=== PATIENT | female | born 1995 | race Caucasian/White ===

== ENCOUNTER 2020-06-15 16:15 | Outpatient (CLI) | payer BC ==
--- NOTE | 2020-06-15 16:47 | RAD ---
Exam:3 views left ankle HISTORY: Sprain. Pain x3 months COMPARISON: None FINDINGS: Intact ankle mortise. Preserved joint spaces. No fracture or soft tissue swelling IMPRESSION: No acute radiographic abnormality.
--- NOTE | 2020-06-15 16:50 | RAD ---
Exam:Left hand 3 views HISTORY: Joint pain. COMPARISON: None FINDINGS: Joint spaces are preserved. No erosive or destructive changes. No fracture. No soft tissue swelling. IMPRESSION: No radiographic abnormalities.
--- NOTE | 2020-06-15 16:53 | RAD ---
XR Hand Rt 3 View STANDARD: 06/15/2020 12:00 AM CLINICAL INDICATION: Joint pain COMPARISON: None. FINDINGS: Bones: No acute osseous abnormality. Joints: Joint spaces are preserved. Soft Tissue: Soft tissues are normal appearing. IMPRESSION: No acute osseous abnormality..
== END 2020-06-15 16:16 | disposition home or self-care (01) ==
LOC: BICRAD 16:15
PROVIDERS: ATTEND Family Medicine
DX: S93.402A Sprain of unspecified ligament of left ankle, initial encounter (principal); M25.541 Pain in joints of right hand; M25.542 Pain in joints of left hand